=== PATIENT | male | born 1990 | race Caucasian/White ===

== ENCOUNTER 2018-02-08 11:30 | Emergency (ER) | payer MEDICAID ==
[~2018-02-08] VITALS: Ht 167.6 cm; Wt 72.6 kg
[2018-02-08 11:30] VITALS: BP_SYST 159
--- NOTE | 2018-02-08 11:30 | NUR ---
BROUGHT BACK TO BED #8 AND TRIAGED. REPORT GIVEN TO RASHAD
--- NOTE | 2018-02-08 11:40 | NUR ---
Note perlita in ED - 02/08/18 at 1146 by [email or web address] Patient to [facility] 08 to [facility] for evaluation. Side rails up.
--- NOTE | 2018-02-08 11:40 | NUR ---
ER Dr. Toledo at bedside examining patient.
[2018-02-08] MEDS ORDERED: LISINOPRIL 10 MG TABLET (PRINIVIL) PO ONE (11:45)
--- NOTE | 2018-02-08 11:46 | NUR ---
Pt AAOx4 ambulated into ED c/o 12/26 pain to bilateral ribs and headache. Pt hx of ADHD, HTN, Sciatica. Skin pink dry and warm, breathing even and unlabored. No other injuries/complaints per pt/noted. Will continue to monitor.
--- NOTE | 2018-02-08 12:27 | NUR ---
Pt resting in bed comfortably with no signs of distress
[2018-02-08 13:22] VITALS: BP_SYST 122
--- NOTE | 2018-02-08 13:22 | NUR ---
Patient given written and verbal discharge instructions and verbalizes understanding. ER MD Toledo discussed with patient the results and treatment provided. Patient in stable condition. ID arm band removed. Rx of Lisinopril given. Patient educated on pain management and to follow up with PMD. Pain Scale 1. Opportunity for questions provided and answered. Medication side effect fact sheet provided.
== END 2018-02-08 13:22 | disposition home or self-care (01) ==
LOC: SED 11:30
DX: F20.0 Paranoid schizophrenia (principal); N39.0 Urinary tract infection, site not specified; I10 Essential (primary) hypertension
CPT/HCPCS: 70450-TC; 99284

== ENCOUNTER 2018-03-01 22:27 | Emergency (ER) | payer MEDICAID ==
[~2018-03-01] VITALS: Ht 167.6 cm; Wt 72.6 kg
[2018-03-01 22:27] VITALS: BP_SYST 135
== END 2018-03-02 01:14 | disposition home or self-care (01) ==
LOC: SED 22:27
DX: F12.10 Cannabis abuse, uncomplicated (principal); F20.0 Paranoid schizophrenia
CPT/HCPCS: 99283

== ENCOUNTER 2018-03-02 06:04 | Emergency (ER) | payer MEDICAID ==
[~2018-03-02] VITALS: Ht 167.6 cm; Wt 72.6 kg
[2018-03-02 06:12] VITALS: BP_SYST 132
[2018-03-02 06:51] LABS: BARBITURATE, URINE NEGATIVE (NEG <=200); BENZODIAZEPINE, URINE NEGATIVE (NEG <=150); CANNABINOID, URINE POSITIVE (NEG <=50); COCAINE, URINE NEGATIVE (NEG <=150); METHAMPHETAMINES SCREEN,URINE NEGATIVE (NEG <=500); OPIATE, URINE NEGATIVE (NEG <=100); PHENCYCLIDINE SCREEN,URINE NEGATIVE (NEG <=25); UR TRICYCLIC ANTIDEPRESSANTS NEGATIVE (NEG <=300); URINE AMPHETAMINE NEGATIVE (NEG <=500); URINE METHADONE NEGATIVE (NEG <=200); URINE OXYCODONE SCREEN NEGATIVE (NEG <=100); URINE PROPOXYPHENE SCREEN NEGATIVE (NEG <=300)
[2018-03-02 06:52] LABS: BASOPHILS # (AUTO) 0.4 K/uL (0.0-0.2); BASOPHILS % (AUTO) 4.4 % (0.0-2.0); EOSINOPHILS % (AUTO) 0.5 % (0.0-4.0); HEMATOCRIT 46.3 % (36-54); HEMOGLOBIN 15.6 g/dL (14.0-18.0); LYMPHOCYTES # (AUTO) 2.1 K/uL (1.0-5.5); LYMPHOCYTES % (AUTO) 21.8 % (20.5-51.5); MEAN CORPUSCULAR HEMOGLOBIN 31 pg (27-31); MEAN CORPUSCULAR HGB CONC 34 % (32-36); MEAN CORPUSCULAR VOLUME 92 fL (79.0-98.0); MONOCYTES # (AUTO) 0.7 K/uL (0.0-1.0); MONOCYTES % (AUTO) 7.7 % (1.7-9.3); NEUTROPHILS # (AUTO) 6.2 K/uL (1.8-7.7); NEUTROPHILS % (AUTO) 65.6 % (40.0-70.0); PLATELET COUNT (AUTO) 412 K/uL (130-430); RED BLOOD CELL COUNT(AUTO) 5.01 MIL/uL (4.2-6.2); RED CELL DISTRIBUTION WIDTH 12.7 % (9.0-15.0); WHITE BLOOD COUNT (AUTO) 9.4 K/uL (4.8-10.8)
[2018-03-02 07:00] LABS: ANION GAP 14 (5-15); CALCIUM 9.6 mg/dL (8.4-11.0); CHLORIDE 103 mmol/L (98-107); CREATININE 1.24 mg/dL (0.55-1.30); GLUCOSE 99 mg/dL (70-99); POTASSIUM 4.4 mmol/L (3.5-5.1); SODIUM SERUM 145 mmol/L (136-145); UREA NITROGEN, BLOOD 18 mg/dL (8-21)
[2018-03-02 07:04] LABS: GFR AFRICAN AMERICAN 91 mL/min (>90)
[2018-03-02 07:05] LABS: ALANINE AMINOTRANSFERASE 73 U/L (12-78); ALBUMIN 4.6 g/dL (3.4-4.8); ASPARTATE AMINOTRANSFERASE 35 U/L (10-37)
[2018-03-02 07:06] LABS: ALCOHOL, BLOOD < 3 mg/dL (<10)
[2018-03-02 10:36] VITALS: BP_SYST 135
== END 2018-03-02 10:36 | disposition home or self-care (01) ==
LOC: SED 06:04
DX: F23 Brief psychotic disorder (principal); Z59.0 Homelessness
CPT/HCPCS: 36415; 80053; 80307; 82140; 85025; 99283; G0482

== ENCOUNTER 2018-03-19 10:03 | Emergency (ER) | payer MEDICAID ==
[~2018-03-19] VITALS: Ht 167.6 cm; Wt 80.3 kg
[2018-03-19 10:03] VITALS: BP_SYST 164
--- NOTE | 2018-03-19 10:03 | NUR ---
BROUGHT IN BY [facility] AND PLACED IN BED #6, TRIAGED. REPORT GIVEN TO MANUEL
--- NOTE | 2018-03-19 10:05 | NUR ---
Pt presents to ER c/o low back pain 8/10 on pain scale, pt denies trauma or injury, pt states "I think I have just been doing too much lately". Pt reports being seen at [facility] earlier this morning for chest pressure and back pain but was discharged. Upon arrival to ER, pt denies chest pressure / pain, denies sob, pt AOX4, ambulatory, no signs of acute distress.
--- NOTE | 2018-03-19 10:09 | NUR ---
DR GARCIA AT BEDSIDE FOR EVALUATION
[2018-03-19] MEDS ORDERED: NACL 0.9% 1,000 ML IV ONE (10:10)
[2018-03-19] MEDS ORDERED: KETOROLAC TROMETHAMINE 30 MG VIAL IVP ONE (10:15)
--- NOTE | 2018-03-19 10:22 | NUR ---
# 20 gauge angiocath placed to RAC. Use of asceptic technique. Opsite placed over site. Blood return noted. Blood for lab drawn from site. Flushed with 10 cc of normal saline. No evidence of infiltration noted. Patient tolerated well.
[2018-03-19 10:36] LABS: BASOPHILS # (AUTO) 0.2 K/uL (0.0-0.2); BASOPHILS % (AUTO) 1.9 % (0.0-2.0); EOSINOPHILS # (AUTO) 0.1 K/uL (0.0-0.4); EOSINOPHILS % (AUTO) 0.7 % (0.0-4.0); HEMATOCRIT 44.5 % (36-54); HEMOGLOBIN 14.9 g/dL (14.0-18.0); LYMPHOCYTES # (AUTO) 1.1 K/uL (1.0-5.5); LYMPHOCYTES % (AUTO) 10.4 % (20.5-51.5); MEAN CORPUSCULAR HEMOGLOBIN 31 pg (27-31); MEAN CORPUSCULAR HGB CONC 34 % (32-36); MEAN CORPUSCULAR VOLUME 91 fL (79.0-98.0); MONOCYTES # (AUTO) 0.6 K/uL (0.0-1.0); MONOCYTES % (AUTO) 5.7 % (1.7-9.3); NEUTROPHILS # (AUTO) 8.9 K/uL (1.8-7.7); NEUTROPHILS % (AUTO) 81.3 % (40.0-70.0); PLATELET COUNT (AUTO) 361 K/uL (130-430); RED BLOOD CELL COUNT(AUTO) 4.87 MIL/uL (4.2-6.2); RED CELL DISTRIBUTION WIDTH 12.6 % (9.0-15.0); WHITE BLOOD COUNT (AUTO) 10.9 K/uL (4.8-10.8)
--- NOTE | 2018-03-19 10:37 | NUR ---
Pt medicated as ordered by ER Dr. Sesay and tolerated well; pt however refused administration of Normal Saline stating "I just don't want it, it makes me feel uncomfortable." Dr. Sesay informed of situation.
[2018-03-19 10:44] LABS: BILIRUBIN,URINE NEGATIVE (NEGATIVE); BLOOD, URINE NEGATIVE (NEGATIVE); CLARITY/URINE CLEAR (CLEAR); COLOR,URINE YELLOW (YELLOW); GLUCOSE,URINE NEGATIVE (NEGATIVE); KETONES,URINE NEGATIVE (NEGATIVE); LEUKOCYTE ESTERASE ,URINE NEGATIVE (NEGATIVE); NITRITE, URINE NEGATIVE (NEGATIVE); PH,URINE 5.5 (5.0-8.0); PROTEIN URINE NEGATIVE (NEGATIVE); UROBILINOGEN,URINE 0.2 (0.2-1.0)
[2018-03-19 10:51] LABS: ALBUMIN 4.2 g/dL (3.4-4.8); TOTAL BILIRUBIN 0.5 mg/dL (0.0-1.0)
[2018-03-19 10:55] LABS: BARBITURATE, URINE NEGATIVE (NEG <=200); BENZODIAZEPINE, URINE NEGATIVE (NEG <=150); CANNABINOID, URINE POSITIVE (NEG <=50); COCAINE, URINE NEGATIVE (NEG <=150); METHAMPHETAMINES SCREEN,URINE NEGATIVE (NEG <=500); OPIATE, URINE NEGATIVE (NEG <=100); PHENCYCLIDINE SCREEN,URINE NEGATIVE (NEG <=25); UR TRICYCLIC ANTIDEPRESSANTS NEGATIVE (NEG <=300); URINE AMPHETAMINE NEGATIVE (NEG <=500); URINE METHADONE NEGATIVE (NEG <=200); URINE OXYCODONE SCREEN NEGATIVE (NEG <=100); URINE PROPOXYPHENE SCREEN NEGATIVE (NEG <=300)
--- NOTE | 2018-03-19 11:34 | NUR ---
PT STATES THAT HE WANTS TO LEAVE AND HAVE IV REMOVED. IV REMOVED PER REQUEST. DR GARCIA AWARE OF PTS WANTS.
[2018-03-19 11:47] VITALS: BP_SYST 128
--- NOTE | 2018-03-19 11:48 | NUR ---
Patient given written and verbal discharge instructions and verbalizes understanding. ER MD discussed with patient the results and treatment provided. Patient in stable condition. ID arm band removed. Rx of CHLOROSEPTIC, MOTRIN given. Patient educated on pain management and to follow up with PMD. Pain Scale 0/10. Opportunity for questions provided and answered. Medication side effect fact sheet provided.
== END 2018-03-19 11:48 | disposition home or self-care (01) ==
LOC: SED 10:03
DX: G89.29 Other chronic pain (principal); M54.5 Low back pain; J02.9 Acute pharyngitis, unspecified; F12.10 Cannabis abuse, uncomplicated; F20.0 Paranoid schizophrenia; R03.0 Elevated blood-pressure reading, without diagnosis of hypertension; Z87.39 Personal history of other diseases of the musculoskeletal system and connective tissue
CPT/HCPCS: 36415; 72100; 80053; 80307; 81003; 85025; 86403; 87081; 96374; 99284; J1885